=== PATIENT | female | born 1975 ===

== ENCOUNTER → 2018-05-13 | Day surgery (SDC) | payer OTHER ==
[~2018-05-13] MED LIST: IV RINGERS,LACTATED 1000ML 1,000 ML IV SCH; LIDOCAINE 1% PF 2 ML VIAL. ID PRN; LOSA-73 PO; MIDAZOLAM HCL/PF 2 MG/2 ML VIAL. IV PRN; PROPOFOL 20 ML IV ONE; fentaNYL PF VIAL 100 MCG/2 ML VIAL IV PRN
--- NOTE | 2018-05-13 13:10 | PDOC1 ---
History and Physical Date of Admission Date of Admission DATE: 05/13/18 TIME: 13:05 Source Source: Chart review, Patient History of Present Illness History of Present Illness 43 y/o female with upper abd pain/dyspepsia. H/o H.pylori; treated in some fashion, but unclear. H/o negative sono. Past Medical History Cardiovascular: HTN Psych: Anxiety, Depression Past Surgical History Past Surgical History: No pertinent history Family History Family History: Family History Unknown Social History Smoke: No ALCOHOL: none Drugs: None Current Medications Current Medications Current Medications Midazolam HCl (Versed) 2 mg PRN 1X PRN IV PRIOR TO PROCEDURE; Start 05/13/18 at 13:00; Stop 05/14/18 at 12:59; Status UNV Fentanyl Citrate (Fentanyl 2ml Vial) 25 mcg PRN Q5MIN PRN IV X 2 DOSES FOR PAIN ; Start 05/13/18 at 13:00; Stop 05/14/18 at 12:59; Status UNV Fentanyl Citrate (Fentanyl 2ml Vial) 50 mcg PRN Q5MIN PRN IV X 2 DOSES FOR PAIN ; Start 05/13/18 at 13:00; Stop 05/14/18 at 12:59; Status UNV Ringer's Solution 1,000 ml @ 125 mls/hr Q8H IV ; Start 05/13/18 at 12:57; Stop 05/14/18 at 00:56; Status UNV Lidocaine HCl (Xylocaine-Mpf 1% 2ml Vial) 2 ml 1X PRN PRN ID IV START; Start 05/13/18 at 13:00; Stop 05/14/18 at 12:59; Status UNV ROS Review of System Otherwise negative. Physical Exam General: Alert, Oriented X3, Cooperative, No acute distress Lungs: Clear to auscultation Heart: S1S2, RRR, no gallops, no murmurs Abdomen: Normal bowel sounds, Soft, No tenderness, No hepatosplenomegaly Rectal Exam: not examined Extremities: No cyanosis, No edema Skin: No significant lesion Neuro: Normal gait, Normal speech, Strength at 5/5 X4 ext, Normal tone, Sensation intact, Cranial nerves 3-12 NL, Reflexes 2+ Psych/Mental Status: Mental status NL, Mood NL VTE Prophylaxis Ordered VTE Prophylaxis Devices: No VTE Pharmacological Prophylaxi: No Assessment/Plan Assessment/Plan IMP: Upper abd pain/negative sono/history of H.pylori. PLAN: EGD ARSEN HERNANDEZ MD May 13, 2018 13:10
[2018-05-13 13:19] LABS: U PREG PATIENT NEGATIVE (NEG)
--- NOTE | 2018-05-13 13:34 | PDOC4 ---
PROCEDURE Procedure EGD/biopsies Indication; Upper abd pain/history of positive H.pylori serology, treated? Meds: per anesthesia Findings: E--Grade A reflux at 37cm. G--Scattered erosions, antrum. Biopsies angulus. Pyloric deformity. D--Normal to second portion. Berkley. well. IMP: Reflux esophagitis Gastric erosions. REC: omeprazole 40mg daily. Await biopsies. Resume diet and meds. F/u 2 weeks. ARSEN HERNANDEZ MD May 13, 2018 13:34
[2018-05-13 14:06] VITALS: BP 114/62
--- NOTE | 2018-05-14 15:09 | PATHOLOGY ---
[facility] Accession Number: [id number] . 01 Material submitted: . ANTRUM BIOPSY . 01 Clinical history: . Pre-OP DX: Abdominal pain Post-OP DX: H. pylori . 02 Diagnosis: Gastric biopsy, antrum: - Chronic gastritis, mild, focally active. [facility]/05/14/2018 . 02 Comment: Sections of the gastric antral biopsy show focally active mild chronic inflammation. A properly controlled immunoperoxidase for Helicobacter is negative for Helicobacter organisms. There is no evidence of malignancy. ([facility] 05/14/[facility]) . Special stain performed: Immunoperoxidase for Helicobacter . 02 Electronically signed: . Kevin Kevin MD, Pathologist NPI- [id number] . 01 Gross description: . Received in formalin labeled "Maxx Mohamud, Ann, antrum BX," are 2 segments of harper soft tissue measuring 1.0 x 0.2 x 0.2 cm in aggregate dimensions and ranging from 0.4 to 0.6 cm in maximum dimension. The specimen is submitted entirely in cassette A1. ([facility]; 05/13/2018) TOB/TOB . 02 Pathologist provided ICD-10: K29.50 . 02 CPT . 376185, [id number] Specimen Comment: A courtesy copy of this report has been sent to Specimen Comment: [phone], . Specimen Comment: Report sent to / DR GUZMAN Specimen Comment: A duplicate report has been generated due to demographic updates. Performed at: [address], [place], [place] [id number] MD Jim Fraga MD Phone: [phone] Performed at: 02 [facility] [address] [place], [place] [id number] MD Kevin Kevin MD Phone: [phone]
== END | disposition home or self-care (01) ==
LOC: SURG 12:50
PROVIDERS: ATTEND Internal Medicine Gastroenterology
DX: K21.0 Gastro-esophageal reflux disease with esophagitis (principal); K29.50 Unspecified chronic gastritis without bleeding; K31.89 Other diseases of stomach and duodenum; I10 Essential (primary) hypertension; F32.9 Major depressive disorder, single episode, unspecified; F41.9 Anxiety disorder, unspecified; Z79.899 Other long term (current) drug therapy; Z86.19 Personal history of other infectious and parasitic diseases
CPT/HCPCS: 43239; 81025; 88305; 88342; J2704